=== PATIENT | female | born 1945 | race Caucasian/White ===

== ENCOUNTER 2018-09-08 11:51 | Day surgery (SDC) | payer MEDICARE ==
[~2018-09-08] VITALS: Ht 165.1 cm; Wt 74.5 kg
[2018-09-08 12:00] VITALS: BP 141/78
[2018-09-08] MEDS ORDERED: MIDAZolam 5mg/5ml vial ONE (12:18)
[2018-09-08] MEDS ORDERED: fentaNYL/PF 50MCG/1 ML 2ML syringe ONE (12:18)
[2018-09-08] MEDS ORDERED: LEVO100T9 PO (12:26)
[2018-09-08 13:03] VITALS: BP 130/67
[2018-09-08 13:13] VITALS: BP 131/65
[2018-09-08 13:23] VITALS: BP 125/66
[2018-09-08 13:28] VITALS: BP 134/64
== END 2018-09-08 13:30 | disposition home or self-care (01) ==
LOC: GI LAB 11:51
PROVIDERS: ATTEND Internal Medicine Gastroenterology
DX: K57.30 Diverticulosis of large intestine without perforation or abscess without bleeding (principal); K64.8 Other hemorrhoids
CPT/HCPCS: 45378; 99153; G0500; J2250; J3010; J7030; 99152; A4620

== ENCOUNTER 2018-10-07 10:39 | Inpatient (IN) | payer MEDICARE ==
[~2018-10-07] VITALS: Ht 165.1 cm; Wt 76.0 kg
[~2018-10-07 10:39] MED LIST: LEVO100T9 PO
[2018-10-07 11:00] LABS: BASOPHILS % (AUTO) 0.3 % (0-1); EOSINOPHILS # (AUTO) 0.1 X10'3 (0-0.9); EOSINOPHILS % (AUTO) 1.2 % (0-6); HEMATOCRIT 40.5 % (35.0-45.0); HEMOGLOBIN 13.7 g/dl (12.0-16.0); LYMPHOCYTES # (AUTO) 1.1 X10'3 (1.1-4.8); LYMPHOCYTES % (AUTO) 14.6 % (21-51); MEAN CORPUSCULAR HEMOGLOBIN 31.7 PG (27.0-31.0); MEAN CORPUSCULAR HGB CONC 33.9 % (33.0-36.5); MEAN CORPUSCULAR VOLUME 93.7 FL (78-98); MEAN PLATELET VOLUME 6.6 FL (7.4-10.4); MONOCYTES # (AUTO) 0.4 X10'3 (0-0.9); MONOCYTES % (AUTO) 5.2 % (2-12); NEUTROPHILS # (AUTO) 5.7 X10'3 (1.8-7.7); NEUTROPHILS % (AUTO) 78.7 % (42-75); PLATELET COUNT 361 X10'3 (140-440); RED BLOOD COUNT 4.32 X10'6 (4.20-5.60); RED CELL DISTRIBUTION WIDTH 13.3 % (11.5-14.5); WHITE BLOOD COUNT 7.3 X10'3 (4.5-11.0)
[2018-10-07 11:00] LABS: CLARITY,URINE SLIGHTLY CLOUDY (Clear); COLOR,URINE YELLOW (Yellow); GLUCOSE, URINE NEGATIVE (Neg); KETONES,URINE NEGATIVE (Neg); LEUKOCYTE ESTERASE ,URINE NEGATIVE (Neg); NITRITES, URINE NEGATIVE (Neg); OCCULT BLOOD,URINE TRACE-INTACT (Neg); PROTEIN,URINE TRACE mg/dl (Neg); UROBILINOGEN,URINE 0.2 E.U/dL (0.2-1.0)
[2018-10-07 11:02] LABS: UA COLLECTION TYPE CLN CATCH MIDSTREAM
[2018-10-07 11:09] LABS: PROTHROMBIN TIME 9.8 SECONDS (9.0-12.0)
[2018-10-07 11:12] LABS: MUCUS STRANDS MANY /LPF (Neg); SQUAMOUS EPITHELIAL CELL,UR MODERATE /LPF (FEW)
[2018-10-07 11:14] LABS: BACTERIA,URINE 1+ /HPF (Neg); RBC,URINE 0-2 /HPF (0-2); WBC,URINE 0-4 /HPF (0-4)
[2018-10-07 11:16] LABS: ALANINE AMINOTRANSFERASE 12 U/L (12-78); ALBUMIN 3.9 G/DL (3.4-5.0); ALKALINE PHOSPHATASE 60 IU/L (46-116); ANION GAP 7 (8-16); ASPARTATE AMINO TRANSFERASE 16 U/L (10-37); BILIRUBIN,TOTAL 0.8 MG/DL (0.1-1.0); BLOOD UREA NITROGEN 9 MG/DL (7-18); BUN/CREATININE RATIO 9.5 (6.6-38.0); CALCIUM 9.2 MG/DL (8.5-10.1); CHLORIDE 98 MMOL/L (99-107); CREATININE 0.95 MG/DL (0.40-0.90); GLUCOSE 103 MG/DL (70-104); POTASSIUM 3.9 MMOL/L (3.5-5.1); SODIUM 134 MMOL/L (135-145); TOTAL CARBON DIOXIDE 29.3 MMOL/L (24-32); TOTAL PROTEIN 7.9 G/DL (6.4-8.2); eGFR 58 ML/MIN
[2018-10-07] MEDS ORDERED: famotidine/PF 10 mg/ml inj IV ONE (11:55)
[2018-10-07] MEDS ORDERED: normal saline 1000ML IV soln IVB ONE (11:55)
[2018-10-07] MEDS ORDERED: morphine 4 MG/ML inj SYRINge IV ONE (11:55)
[2018-10-07] MEDS ORDERED: ondansetron/PF 4mg/2ml inj IV ONE ×2 (11:55→14:50)
[2018-10-07] MEDS ORDERED: iohexol 300mg/ml 100ml inj. ONE (11:56)
[2018-10-07] MEDS ORDERED: metroNIDAZOLE-Flagyl 500mg/NS 100 ML IV ONE (12:00)
[2018-10-07] MEDS ORDERED: levoFLOXACIN-Levaquin 500mg/D5 100 ML IV ONE (12:00)
[2018-10-07 12:33] LABS: LIPASE 146 U/L (73-393)
[2018-10-07] MEDS ORDERED: HYDROcodone/acetaminophen 10/325mg tab PO PRN (15:40)
[2018-10-07] MEDS ORDERED: ondansetron/PF 4mg/2ml inj IV PRN (15:40)
[2018-10-07] MEDS ORDERED: HYDROcodone/acetaminophen 5mg/325mg tablet PO PRN (15:40)
[2018-10-07] MEDS ORDERED: magnesium hydroxide 30ml (MOM) UD suspension PO PRN (15:40)
[2018-10-07] MEDS ORDERED: mag hydrox/Alum hydrox/simeth 30ml oral suspension PO PRN (15:40)
[2018-10-07] MEDS ORDERED: morphine 2 MG/ML inj. syringe IV PRN ×2 (15:40)
[2018-10-07] MEDS ORDERED: magnesium 4gm in 100ml NS 100 ML IV PRN (15:40)
[2018-10-07] MEDS ORDERED: magnesium 1gm/100ml D5W IVPB 100 ML IV PRN (15:40)
[2018-10-07] MEDS ORDERED: potassium Cl 40MEQ/NS 500ml 500 ML IV PRN ×2 (15:40)
[2018-10-07] MEDS ORDERED: magnesium Cl slow-release 64mg tablet PO PRN (15:40)
[2018-10-07] MEDS ORDERED: potassium Cl 20 mEq SR tablet PO PRN ×2 (15:40)
[2018-10-07] MEDS ORDERED: acetaminophen 325mg tablet PO PRN ×2 (15:40)
[2018-10-07] MEDS ORDERED: metroNIDAZOLE-Flagyl 500mg/NS 100 ML IV SCH (16:00)
[2018-10-07] MEDS ORDERED: LEVO88TA7 PO (16:07)
[2018-10-07 19:00] VITALS: BP 113/80
[2018-10-07] MEDS: normal saline 1000ml 1,000 ML IV SCH (20:22)
[2018-10-07] MEDS: lactobacillus rhamnosus 10,000 MMU CELLS/CAPSULE PO SCH (20:47)
[2018-10-07] MEDS: metroNIDAZOLE-Flagyl 500mg/NS 100 ML IV SCH (20:48)
[2018-10-08] VITALS: BP 125/64
[2018-10-08] MEDS: normal saline 1000ml 1,000 ML IV SCH ×3 (01:36→22:40)
[2018-10-08] MEDS: metroNIDAZOLE-Flagyl 500mg/NS 100 ML IV SCH ×3 (05:20→20:47)
[2018-10-08 05:56] LABS: BASOPHILS % (AUTO) 0.3 % (0-1); EOSINOPHILS % (AUTO) 0.6 % (0-6); HEMATOCRIT 33.9 % (35.0-45.0); HEMOGLOBIN 11.6 g/dl (12.0-16.0); LYMPHOCYTES # (AUTO) 0.8 X10'3 (1.1-4.8); LYMPHOCYTES % (AUTO) 16.8 % (21-51); MEAN CORPUSCULAR HEMOGLOBIN 32.1 PG (27.0-31.0); MEAN CORPUSCULAR HGB CONC 34.1 % (33.0-36.5); MEAN CORPUSCULAR VOLUME 94.1 FL (78-98); MEAN PLATELET VOLUME 7.1 FL (7.4-10.4); MONOCYTES # (AUTO) 0.3 X10'3 (0-0.9); MONOCYTES % (AUTO) 6.9 % (2-12); NEUTROPHILS # (AUTO) 3.8 X10'3 (1.8-7.7); NEUTROPHILS % (AUTO) 75.4 % (42-75); PLATELET COUNT 279 X10'3 (140-440); RED CELL DISTRIBUTION WIDTH 13.2 % (11.5-14.5)
[2018-10-08 06:19] LABS: ANION GAP 9 (8-16); BLOOD UREA NITROGEN 7 MG/DL (7-18); BUN/CREATININE RATIO 9.3 (6.6-38.0); CALCIUM 8.4 MG/DL (8.5-10.1); CHLORIDE 104 MMOL/L (99-107); CREATININE 0.75 MG/DL (0.40-0.90); GLUCOSE 89 MG/DL (70-104); MAGNESIUM 2.2 MG/DL (1.5-2.4); POTASSIUM 3.7 MMOL/L (3.5-5.1); SODIUM 139 MMOL/L (135-145); TOTAL CARBON DIOXIDE 25.8 MMOL/L (24-32); eGFR 76 ML/MIN
[2018-10-08] MEDS: K and/or MAG REPLACEMENT MC SCH (07:05)
[2018-10-08] MEDS: levoFLOXACIN-Levaquin 250mg/D5 50 ML IV SCH (07:12)
[2018-10-08] MEDS: levoTHYROXINE 88mcg tablet PO SCH (07:13)
[2018-10-08] MEDS: lactobacillus rhamnosus 10,000 MMU CELLS/CAPSULE PO SCH ×2 (07:13→19:45)
[2018-10-08] MEDS: enoxaparin 40mg/0.4ml syringe SQ SCH (07:13)
[2018-10-08 08:53] VITALS: BP 116/60
[2018-10-08 11:00] VITALS: BP 137/71
[2018-10-08 18:00] VITALS: BP 130/77
[2018-10-09] VITALS: BP 123/72
[2018-10-09] MEDS: metroNIDAZOLE-Flagyl 500mg/NS 100 ML IV SCH ×2 (04:38→13:00)
[2018-10-09 05:52] LABS: HEMATOCRIT 35.1 % (35.0-45.0); HEMOGLOBIN 11.9 g/dl (12.0-16.0); MEAN CORPUSCULAR HEMOGLOBIN 31.7 PG (27.0-31.0); MEAN CORPUSCULAR HGB CONC 33.9 % (33.0-36.5); MEAN CORPUSCULAR VOLUME 93.8 FL (78-98); MEAN PLATELET VOLUME 6.9 FL (7.4-10.4); PLATELET COUNT 316 X10'3 (140-440); RED BLOOD COUNT 3.75 X10'6 (4.20-5.60); RED CELL DISTRIBUTION WIDTH 13.6 % (11.5-14.5); WHITE BLOOD COUNT 2.9 X10'3 (4.5-11.0)
[2018-10-09 06:09] LABS: ALBUMIN 3.2 G/DL (3.4-5.0); ANION GAP 6 (8-16); BLOOD UREA NITROGEN 5 MG/DL (7-18); BUN/CREATININE RATIO 6.3 (6.6-38.0); CALCIUM 8.5 MG/DL (8.5-10.1); CHLORIDE 105 MMOL/L (99-107); GLUCOSE 96 MG/DL (70-104); MAGNESIUM 2.2 MG/DL (1.5-2.4); POTASSIUM 3.5 MMOL/L (3.5-5.1); SODIUM 141 MMOL/L (135-145); TOTAL CARBON DIOXIDE 29.6 MMOL/L (24-32); eGFR 70 ML/MIN
[2018-10-09 06:43] LABS: PLATELET ESTIMATE NORMAL; TOTAL CELLS COUNTED 100
[2018-10-09 07:15] VITALS: BP 165/78
[2018-10-09] MEDS: normal saline 1000ml 1,000 ML IV SCH (07:36)
[2018-10-09] MEDS: K and/or MAG REPLACEMENT MC SCH (08:00)
[2018-10-09] MEDS: levoFLOXACIN-Levaquin 250mg/D5 50 ML IV SCH (08:09)
[2018-10-09] MEDS: enoxaparin 40mg/0.4ml syringe SQ SCH (08:09)
[2018-10-09] MEDS: lactobacillus rhamnosus 10,000 MMU CELLS/CAPSULE PO SCH (08:09)
[2018-10-09] MEDS: levoTHYROXINE 88mcg tablet PO SCH (08:09)
[2018-10-09 11:30] VITALS: BP 156/81
[2018-10-09 12:33] LABS: BASOPHILS % (AUTO) 0.2 % (0-1); EOSINOPHILS # (AUTO) 0.1 X10'3 (0-0.9); EOSINOPHILS % (AUTO) 1.7 % (0-6); HEMATOCRIT 35.8 % (35.0-45.0); HEMOGLOBIN 12.1 g/dl (12.0-16.0); LYMPHOCYTES # (AUTO) 0.8 X10'3 (1.1-4.8); MEAN CORPUSCULAR HEMOGLOBIN 31.6 PG (27.0-31.0); MEAN CORPUSCULAR HGB CONC 33.6 % (33.0-36.5); MEAN CORPUSCULAR VOLUME 93.8 FL (78-98); MEAN PLATELET VOLUME 7.2 FL (7.4-10.4); MONOCYTES # (AUTO) 0.2 X10'3 (0-0.9); MONOCYTES % (AUTO) 5.9 % (2-12); NEUTROPHILS # (AUTO) 2.2 X10'3 (1.8-7.7); NEUTROPHILS % (AUTO) 67.2 % (42-75); PLATELET COUNT 320 X10'3 (140-440); RED BLOOD COUNT 3.82 X10'6 (4.20-5.60); RED CELL DISTRIBUTION WIDTH 13.3 % (11.5-14.5); WHITE BLOOD COUNT 3.3 X10'3 (4.5-11.0)
[2018-10-09] MEDS ORDERED: LEVO500T2 PO (13:12)
[2018-10-09] MEDS ORDERED: METR500T4 PO (13:12)
== END 2018-10-09 15:31 | disposition home or self-care (01) | DRG 683 ==
LOC: ER 10:39 → ED HOLD 15:36 → SUR 3N 18:57
PROVIDERS: ADMIT Hospitalist; ATTEND Family Medicine
PROC: BW211ZZ Computerized Tomography (CT Scan) of Abdomen and Pelvis using Low Osmolar Contrast (ICD-10-PCS; principal; 2018-10-07)
DX: N17.9 Acute kidney failure, unspecified (principal); K57.32 Diverticulitis of large intestine without perforation or abscess without bleeding; E87.1 Hypo-osmolality and hyponatremia; E03.9 Hypothyroidism, unspecified; K59.00 Constipation, unspecified; Z90.49 Acquired absence of other specified parts of digestive tract; Z88.0 Allergy status to penicillin; Z88.2 Allergy status to sulfonamides; Z79.899 Other long term (current) drug therapy
CPT/HCPCS: 36415; 74177; 80048; 80053; 81001; 83605; 83690; 83735; 84443; 85025; 85610; 87040; 87070; 96365; 96367; 96375; 99285; G0378; J1650; J1956; J2270; J2405; J3490; J7030; Q9967

== ENCOUNTER 2025-06-09 08:11 | Outpatient (CLI) | payer MEDICARE, OTHER ==
[~2025-06-09 08:11] MED LIST changes: -LEVO100T9 PO; +LEVO88TA7 PO
--- NOTE | 2025-06-09 10:56 | RADIOLOGY REPORT ---
CLINICAL HISTORY: PAIN IN LEFT FOOT TECHNIQUE: Multisequence multiplanar MRI images of the left ankle were obtained without contrast. Mu lti sequence multi planar MRI images of the left foot were also obtained without IV contrast. COMPARISON: None FINDINGS: BONES/JOINTS: There is prominent t2/stir hyperintense signal in the 2nd metatarsal base and extending to the proximal to mid shaft. There is an associated fracture of the plantar aspect of the base of t he 2nd metatarsal (coronal foot series 3 and 4 image 30 correlating with sagittal series 7 and 8 imag e 10), with minimal displacement up to 1.5 mm seen on the sagittal T1 series. There is mild adjacent soft tissue edema. No other evidence of acute fracture identified in the left foot or ankle. No ost eochondral defect or significant chondromalacia. Type 2 accessory navicular incidentally noted. There is osseous fusion across the 1st MTP joint from prior arthrodesis. No significant joint effusion. TENDONS: Tibialis posterior, flexor digitorum longus, and flexor hallucis longus tendons are intact. Peroneus longus and brevis tendons are intact. Mild Achilles tendinosis with mild peritendinitis. Ach illes tendon is intact with no significant tendinosis or peritendinitis. Flexor and extensor tendons in the midfoot and forefoot are also intact. LIGAMENTS: Deltoid ligament complex is intact. Spring ligament complex is intact. Anterior and janitorial manager ior talofibular ligaments are intact. Syndesmotic ligaments are intact. Lisfranc ligament complex is intact. The rest of the ligamentous structures in the ankle and foot are intact. PLANTAR FASCIA: There is deformity and indistinctness of the fibers of the central band of the planta r fascia at the midfoot involving its medial aspect, may be sequelae of prior intervention and/or tea r and scarring. Mild edema adjacent to the calcaneal attachment of the plantar fascia. SINUS TARSI: Unremarkable. No significant edema. 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 OTHER: Prominent T1 hypointense signal of the 2nd intermetatarsal space, may be due to perineural fib rosis/ emery's neuroma in the appropriate clinical setting. IMPRESSION: 1. Acute or subacute fracture involving the 2nd metatarsal base with associated marrow edema extendin g to the proximal to mid shaft of the 2nd metatarsal. 2. Solid osseous fusion across the 1st MTP joint from prior arthrodesis. 3. Deformity and indistinctness of the fibers of the central band of the plantar fascia at the medial aspect of the midfoot, may be sequela of prior intervention and/or tear, and scarring. Correlate wit h clinical findings. 4. [id number] fatty atrophy of the abductor digiti minimi muscle, may be seen with lutz neuro brad. 5. Additional findings as detailed above.
== END 2025-06-09 23:59 | disposition home or self-care (01) ==
LOC: MRI02 08:11
PROVIDERS: ATTEND Podiatrist Foot & Ankle Surgery
DX: S92.322A Displaced fracture of second metatarsal bone, left foot, initial encounter for closed fracture (principal); M79.672 Pain in left foot; M72.2 Plantar fascial fibromatosis; X58.XXXA Exposure to other specified factors, initial encounter; Y93.89 Activity, other specified; Y92.89 Other specified places as the place of occurrence of the external cause; Y99.8 Other external cause status
CPT/HCPCS: 73718; 73721

== ENCOUNTER 2025-06-22 09:30 | Outpatient (CLI) | payer MEDICARE, OTHER ==
--- NOTE | 2025-06-22 11:05 | RADIOLOGY REPORT ---
PROCEDURE: MR MRI LUMBAR SPINE INDICATION: RADICULOPATHY, LUMBAR REGION Exam Date: 06/22/2025 09:21 AM COMPARISON: None TECHNIQUE: MRI lumbar spine and sacrum without intravenous contrast. FINDINGS: Grade 1 anterolisthesis of L4 on L5. There are degenerative endplate changes including modic endplat e changes with anterior and lateral osteophytes throughout the lumbar spine. The visualized distal sp inal cord and conus medullaris are within normal limits. The conus medullaris appears to terminate w ithin normal limits. The visualized retroperitoneal and paraspinal soft tissues are unremarkable. Du ral ectasia most prominent in the sacrum. The following axial levels are detailed below: T12-L1: Unremarkable. L1-L2: There is a mild circumferential disc bulge. No significant central canal or neuroforaminal s tenosis. L2-L3: There is a moderate circumferential disc bulge complicated by facet arthropathy associated w ith mild to moderate bilateral neuroforaminal stenosis. No significant central canal stenosis. L3-L4: There is a moderate circumferential disc bulge complicated by facet arthropathy associated w ith mild to moderate bilateral neuroforaminal stenosis. No significant central canal stenosis. L4-L5: There is a moderate circumferential disc bulge complicated by facet arthropathy associated w ith mild to moderate bilateral neuroforaminal stenosis. No significant central canal stenosis. L5-S1: There is a moderate circumferential disc bulge complicated by facet arthropathy associated wi th mild to moderate bilateral neuroforaminal stenosis. No significant central canal stenosis. IMPRESSION: 1. Multilevel degenerative disease. Grade 1 anterolisthesis of L4 on L5. No significant central hair l stenosis. Neural foraminal stenosis as above. 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 Consider follow-up exam with intravenous contrast. HS:Y
== END 2025-06-22 23:59 | disposition home or self-care (01) ==
LOC: MRI02 09:30
PROVIDERS: ATTEND Physical Medicine & Rehabilitation
DX: M51.17 Intervertebral disc disorders with radiculopathy, lumbosacral region (principal); M54.50 Low back pain, unspecified; M62.81 Muscle weakness (generalized); R20.9 Unspecified disturbances of skin sensation; M48.07 Spinal stenosis, lumbosacral region
CPT/HCPCS: 72148